=== PATIENT | female | born 1990 | race American Indian/Alaskan Native ===

== ENCOUNTER 2021-08-16 01:46 | Emergency (ER) | payer MEDICAID ==
--- NOTE | 2021-08-16 01:46 | Emergency Department Report ---
ED General Adult HPI - General Chief complaint: Chest Pain Stated complaint: HEADACHE/VISION LOSS/FAST HEART RATE Time Seen by Provider: 08/16/21 01:46 EST Source: patient Mode of arrival: Ambulatory Limitations: No Limitations - History of Present Illness Initial comments: Patient presents with multiple complaints. She had reported to me that she was having a headache and blurry vision. This has been present for the last week or so. The headache was global and throbbing. The blurry vision was present for the last couple of days. It was blurry not double. She noticed it out of both eyes. She did not notice any aggravating or alleviating factors for her headache or her visual change. She states that the headache was gradual onset, not thunderclap. It was not maximum intensity at the time of onset. It is gradually worsened. She denied head trauma. She did not have any runny nose or cough. She had reported initially that she was having chest pain or shortness of breath. She failed to mention this to me. When I questioned her about it, she states that her chest was sore. She denied any exertional component. There is no pleuritic component. The soreness was diffuse. It was not worsened by position, exertion, or inspiration. - Related Data Previous Rx's Medication Instructions Recorded Last Taken Type Ibuprofen [Motrin] 600 mg PO Q8H PRN #30 tablet 08/16/21 Unknown Rx Allergies Allergy/AdvReac Type Severity Reaction Status Date / Time No Known Allergies Allergy Unverified 08/16/21 01:21 EST ED Review of Systems ROS: Stated complaint: HEADACHE/VISION LOSS/FAST HEART RATE Other details as noted in HPI Comment: Unobtainable due to pts medical conditions Constitutional: denies: fever Eyes: as per HPI ENT: denies: throat pain Respiratory: denies: cough Cardiovascular: as per HPI Endocrine: denies: unexplained weight loss Gastrointestinal: denies: abdominal pain Genitourinary: denies: dysuria Musculoskeletal: denies: back pain Skin: denies: rash Neurological: as per HPI Hematological/Lymphatic: denies: easy bruising ED Past Medical Hx - Past Medical History Previous Medical History?: Yes Additional medical history: Morbid Obesity - Family History Family history: no significant - Social History Smoking Status: Never Smoker Substance Use Type: None - Medications Home Medications: Home Medications Medication Instructions Recorded Confirmed Last Taken Type Ibuprofen [Motrin] 600 mg PO Q8H PRN #30 tablet 08/16/21 Unknown Rx ED Physical Exam - General Limitations: No Limitations, Other (Pulse ox noted and normal) General appearance: alert, in no apparent distress, obese - Head Head exam: Present: atraumatic, normocephalic, normal inspection - Eye Eye exam: Present: normal appearance, PERRL, EOMI. Absent: scleral icterus Pupils: Present: other (Funduscopic exam was normal bilaterally) - ENT ENT exam: Present: normal exam, mucous membranes moist, normal external ear exam - Neck Neck exam: Present: normal inspection. Absent: meningismus - Respiratory Respiratory exam: Present: normal lung sounds bilaterally. Absent: respiratory distress - Cardiovascular Cardiovascular Exam: Present: regular rate, normal rhythm - GI/Abdominal GI/Abdominal exam: Present: soft. Absent: tenderness - Extremities Exam Extremities exam: Present: normal capillary refill. Absent: pedal edema - Back Exam Back exam: Absent: CVA tenderness (R), CVA tenderness (L) - Neurological Exam Neurological exam: Present: alert, oriented X3, CN II-XII intact, normal gait. Absent: motor sensory deficit - Psychiatric Psychiatric exam: Present: normal affect, normal mood - Skin Skin exam: Present: warm, dry ED Course Vital Signs 08/16/21 08/16/21 08/16/21 01:12 EST 01:43 EST 02:44 Temperature 97.9 F Pulse Rate 80 76 Pulse Rate [ Lying] Pulse Rate [ Sitting] Pulse Rate [ Standing] Respiratory 18 19 18 Rate Blood Pressure 143/74 Blood Pressure 130/78 [Left] Blood Pressure [Lying] Blood Pressure [Sitting] Blood Pressure [Standing] O2 Sat by Pulse 97 100 Oximetry 08/16/21 02:47 Temperature Pulse Rate Pulse Rate [ 79 Lying] Pulse Rate [ 74 Sitting] Pulse Rate [ 82 Standing] Respiratory Rate Blood Pressure Blood Pressure [Left] Blood Pressure 130/52 [Lying] Blood Pressure 143/73 [Sitting] Blood Pressure 146/72 [Standing] O2 Sat by Pulse Oximetry - Reevaluation(s) Reevaluation #1: 08/16/21 01:46 EST IV and labs were ordered. Old records reviewed. Reevaluation #2: 08/16/21 04:03 Labs noted. Patient was discharged ED Medical Decision Making - Lab Data Result diagrams: 08/16/21 02:54 11/07/21 02:54 Rhythm strip: Normal sinus rhythm without ectopy per monitor observed in seconds. - EKG Data -: EKG Interpreted by Me - EKG Data 08/16/21 04:03 EKG shows normal sinus rhythm with normal intervals. Patient has a normal QRS and normal QT corrected. There is no ST elevation to suggest any per there is no ST depression suggestive of ischemia. - Medical Decision Making Patient present with multiple complaints. Her focus for me was headache and blurry vision. There is no evidence of stroke or tumor clinically. She did not have intractable pain. There is no neurologic deficit. She did not have sy mptoms suggestive of subarachnoid hemorrhage. There was no trauma to suggest subdural or epidural hematomas. She did not have meningeal signs. She had reported chest pain previously. There was certainly no evidence of STEMI or NSTEMI. I do not believe this represents ACS. Clinically, she does not have pneumonia or pneumothorax. Critical Care Time: No Critical care attestation.: If time is entered above; I have spent that time in minutes in the direct care of this critically ill patient, excluding procedure time. ED Disposition Clinical Impression: Vision disturbance, Precordial chest pain Acute headache Qualifiers: Headache type: unspecified Intractability: not intractable Qualified Code(s): R51.9 - Headache, unspecified Disposition: 01 HOME / SELF CARE / HOMELESS Is pt being admited?: No Condition: Stable Instructions: Nonspecific Chest Pain, Adult, [id number], General Headache Wi thout Cause Additional Instructions: Drink any water. Return for problems. Follow-up with your regular doctor for recheck. If you do not have a doctor, follow-up with the referral physician. Prescriptions: Ibuprofen [Motrin] 600 mg PO Q8H PRN #30 tablet PRN Reason: Pain Referrals: PRIMARY CAREMD [Primary Care Provider] - 3-5 Days DARYL CASE MD [Staff Physician] - 3-5 Days
[2021-08-16] MEDS ORDERED: KETOROLAC 30 MG/1 ML INJ IV ONE (01:47)
[2021-08-16] MEDS ORDERED: SODIUM CHLORIDE 0.9% 1000 ML 1,000 ML IV ONE (01:47)
--- NOTE | 2021-08-16 02:15 | XRay Report ---
CHEST 2 VIEWS INDICATION / CLINICAL INFORMATION: Chest pain. COMPARISON: None available. FINDINGS: SUPPORT DEVICES: None. HEART / MEDIASTINUM: No significant abnormality. LUNGS / PLEURA: No significant pulmonary or pleural abnormality. No pneumothorax. ADDITIONAL FINDINGS: No significant additional findings. IMPRESSION: 1. No acute findings. Signer Name: Greg Alcaraz MD Signed: 08/16/2021 2:10 AM Workstation Name: [id number]
[2021-08-16 02:33] LABS: BUN/Creatinine Ratio 11; Blood Urea Nitrogen 10 mg/dL (7-17); Calcium 8.4 mg/dL (8.4-10.2); Hemolysis Index 0
[2021-08-16] MEDS ORDERED: KETOROLAC 30 MG/1 ML INJ IM ONE (02:41)
[2021-08-16 03:19] LABS: Mean Corpuscular HGB Conc 28 % (30-34); Platelet Count 354 K/mm3 (140-440); Red Blood Count 4.95 M/mm3 (3.65-5.03)
[2021-08-16 03:35] LABS: Hematocrit 27.5 % (30.3-42.9); Hemoglobin 7.8 gm/dl (10.1-14.3); Mean Corpuscular Volume 56 fl (79-97); Red Cell Distribution Width 20.4 % (13.2-15.2)
[2021-08-16 04:52] VITALS: BP 125/58
--- NOTE | 2021-08-16 11:47 | Electrocardiograph Report ---
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
== END 2021-08-16 04:35 | disposition home or self-care (01) ==
LOC: ED 01:46
DX: R07.2 Precordial pain (principal); R51.9 Headache, unspecified; H53.8 Other visual disturbances
CPT/HCPCS: 36415; 71046; 80048; 84484; 85027; 93005; 96372; 99284; J1885; J7030

== ENCOUNTER 2022-04-22 23:38 | Emergency (ER) | payer MEDICAID ==
[2022-04-22 23:46] VITALS: BP 147/79
--- NOTE | 2022-04-25 15:10 | Electrocardiograph Report ---
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
== END 2022-04-25 11:22 | disposition left against medical advice (07) ==
LOC: ED 23:38
DX: R07.9 Chest pain, unspecified (principal); Z53.21 Procedure and treatment not carried out due to patient leaving prior to being seen by health care provider
CPT/HCPCS: 93005